=== PATIENT | male | born 1955 | race Caucasian/White ===

== ENCOUNTER 2023-03-08 00:39 | Day surgery (SDC) | payer OTHER, SELFPAY ==
[2023-02-25 10:31] VITALS: BMI 29.9
[2023-03-08 06:57] VITALS: BP 123/71; PULSE 62; RESP 20; TEMP 36.2; O2SAT 100; BMI 30.6
[2023-03-08] MEDS: LACTATED RINGERS 1,000 ML 150 ML IV CONT (07:13)
[2023-03-08 07:17] LABS: Glucose Point of Care 145 mg/dl (65-105)
--- NOTE | 2023-03-08 07:27 | WPDANESEPPF ---
Anes - Initial Pre Proc Eval Procedure: Operation Date: 03/08/23 08:15 Proposed Procedures p Screening Colonoscopy - Josiah Otto MD Date/Time: 03/08/23 07:27 Surgeon: Josiah Otto MD Pre Op Diagnosis: neoplasm screening Patient Data Age: 67 Gender: M Height: 1.8 m Weight: 99.5 kg Last Vital Signs Temp 97.2 F L 03/08/23 06:57 Pulse 62 03/08/23 06:57 Resp 20 03/08/23 06:57 BP 123/71 03/08/23 06:57 Pulse Ox 100 03/08/23 06:57 O2 Del Method Room Air 03/08/23 06:57 Allergies Allergy/AdvReac Type Severity Reaction Status Date / Time No Known Allergies Allergy Unknown Verified 03/08/23 06:56 Home Medications Medication Instructions Recorded Confirmed Type aspirin 81 mg tablet,delayed 81 mg PO DAILY 02/03/20 02/25/23 History release atorvastatin 40 mg tablet 40 mg PO DAILY 02/03/20 02/25/23 History flaxseed oil 1,000 mg capsule 1,000 mg PO DAILY 02/03/20 02/25/23 History ([place]-3 Flaxseed Oil) lisinopril 20 1 tablet PO DAILY 02/03/20 02/25/23 History mg-hydrochlorothiazide 12.5 mg tablet fenofibrate 160 mg tablet 160 mg PO DAILY #90 tabs 02/05/22 02/25/23 Rx multivitamin (One-A-Day Essential 1 tablet PO DAILY 02/09/22 02/25/23 History tablet) empagliflozin 25 mg tablet 25 mg PO QAM #90 tabs 01/08/23 02/25/23 Rx (Jardiance) allopurinol 100 mg tablet 100 mg PO DAILY #90 tabs 01/29/23 02/25/23 Rx amlodipine 5 mg tablet 5 mg PO DAILY 02/25/23 02/25/23 History ezetimibe 10 mg tablet 10 mg PO DAILY 02/25/23 02/25/23 History metformin 500 mg tablet 1,000 mg PO DAILY 02/25/23 02/25/23 History nebivolol 2.5 mg tablet 2.5 mg PO DAILY 02/25/23 02/25/23 History Laboratory Tests 03/08/23 07:11 POC Capillary Glucose 145 mg/dl H mg/dl (65-105) Patient hx anesthesia problems: none Family hx anesthesia problems: none Results Review: All pre-operative results and documents have been reviewed as part of the pre-operative evaluation. [facility] Past Medical History Medical History Bilateral carotid artery disease Coronary artery disease Diabetes type 2, uncontrolled Hyperlipidemia Hypertension Surgical History Surgical History History of open heart surgery Family History Family History Mother , stroke Cerebrovascular accident Hypertension Father No problems noted. Social History Social History Smoking status: Never smoker Alcohol intake: current Alcohol use details: 5 drinks monthly Substance use type: does not use Lack of Transportation: No Lack of Food: Never True Current Housing: I Have Housing Concerned About Future Housing: No Difficulty Paying Gas/Electric Bills: No Difficulty Paying for Meds: No Currently Unemployed: No Education: High School Diploma/GED Difficulty w/ Childcare or Family Care: No Living arrangements: with family Spiritual care concerns: No Anes - Eval Final PreProcedure Day of Procedure 03/08/23 07:27 Patient weight: obese Heart: regular rate and rhythm Lungs: clear to auscultation Airway: Mallampati scale class III Neurological: alert and oriented Last oral intake: >/= 8 hours ASA classification: III Emergent: no Anesthetic plan: proceed Anesthesia type and monitoring: general GIVS and standard monitoring Results Review: All pre-operative results and documents have been reviewed as part of the pre-operative evaluation. Informed Consent: The patient's anesthetic plan and its attendant risks and benefits were discussed with the patient/family/POA. Questions were solicited and answers provided to the satisfaction of the patient/family/POA.
--- NOTE | 2023-03-08 08:10 | PM.HPGS ---
History of Present Illness History of Present Illness Consent: Risks, benefits, and alternatives have been discussed and questions answered. Patient agrees to proceed with procedure. Chief complaint: neoplasm screening Narrative: Jefry Ortiz is a 67 year old male Presents for screening colonoscopy. Patient's current weight appetite and bowel movements are normal. Patient denies abdominal pain. Patient had previous colonoscopy in 2010 that was unremarkable. Review of Systems Review of Systems: Review of systems noncontributory. [facility] Past Medical History Medical History Bilateral carotid artery disease Coronary artery disease Diabetes type 2, uncontrolled Hyperlipidemia Hypertension Surgical History Surgical History History of open heart surgery Family History Family History Mother , stroke Cerebrovascular accident Hypertension Father No problems noted. Social History Social History Smoking status: Never smoker Alcohol intake: current Alcohol use details: 5 drinks monthly Substance use type: does not use Lack of Transportation: No Lack of Food: Never True Current Housing: I Have Housing Concerned About Future Housing: No Difficulty Paying Gas/Electric Bills: No Difficulty Paying for Meds: No Currently Unemployed: No Education: High School Diploma/GED Difficulty w/ Childcare or Family Care: No Living arrangements: with family Spiritual care concerns: No Meds Home Medications and Allergies Home Medications Medication Instructions Recorded Confirmed Type aspirin 81 mg tablet,delayed 81 mg PO DAILY 02/03/20 02/25/23 History release atorvastatin 40 mg tablet 40 mg PO DAILY 02/03/20 02/25/23 History flaxseed oil 1,000 mg capsule 1,000 mg PO DAILY 02/03/20 02/25/23 History ([place]-3 Flaxseed Oil) lisinopril 20 1 tablet PO DAILY 02/03/20 02/25/23 History mg-hydrochlorothiazide 12.5 mg tablet fenofibrate 160 mg tablet 160 mg PO DAILY #90 tabs 02/05/22 02/25/23 Rx multivitamin (One-A-Day Essential 1 tablet PO DAILY 02/09/22 02/25/23 History tablet) empagliflozin 25 mg tablet 25 mg PO QAM #90 tabs 01/08/23 02/25/23 Rx (Jardiance) allopurinol 100 mg tablet 100 mg PO DAILY #90 tabs 01/29/23 02/25/23 Rx amlodipine 5 mg tablet 5 mg PO DAILY 02/25/23 02/25/23 History ezetimibe 10 mg tablet 10 mg PO DAILY 02/25/23 02/25/23 History metformin 500 mg tablet 1,000 mg PO DAILY 02/25/23 02/25/23 History nebivolol 2.5 mg tablet 2.5 mg PO DAILY 02/25/23 02/25/23 History Allergies Allergy/AdvReac Type Severity Reaction Status Date / Time No Known Allergies Allergy Unknown Verified 03/08/23 06:56 Vital Signs Vital Signs - 24 hr 03/08/23 06:57 Temperature 97.2 F L Pulse Rate 62 Respiratory Rate 20 Blood Pressure 123/71 Pulse Oximetry 100 Oxygen Delivery Room Air Exam Narrative: Physical exam reveals patient to be alert. Vital signs stable. HEENT exam is unremarkable. . Lungs are clear to auscultation and percussion. Heart is without murmur or extra sounds. Abdomen bowel sounds present soft nontender with no hepatosplenomegaly. Digital external rectal exam is normal. Assessment and Plan Assessment and plan (1) Screening for colon cancer: Code(s): Z12.11 - Encounter for screening for malignant neoplasm of colon Status: Acute Assessment and Plan: Patient presents today for screening colonoscopy. He appears to be at average risk for colon polyps. Further recommendations may be given after endoscopy.
[2023-03-08] MEDS: SIMETHICONE ORAL SUSPENSION 20 MG/0.3 ML 30 ML BOTTLE 0.6 ML IRRIGATION (08:32)
[2023-03-08 08:42] VITALS: BP 96/44; PULSE 67; RESP 17; O2SAT 98
[2023-03-08 08:52] VITALS: BP 113/61; PULSE 63; RESP 17; O2SAT 95
[2023-03-08 09:02] VITALS: BP 124/66; PULSE 61; RESP 18; O2SAT 99
== END 2023-03-08 09:11 | disposition home or self-care (01) ==
PROVIDERS: PCP Physician Assistant; Visit Provider Internal Medicine Gastroenterology
PROC: 0DJD8ZZ Inspection of Lower Intestinal Tract, Via Natural or Artificial Opening Endoscopic (ICD-10-PCS; CPT 45378; principal; 2023-03-08 08:15)
DX: Z12.11 Encounter for screening for malignant neoplasm of colon (principal); D12.3 Benign neoplasm of transverse colon; K63.5 Polyp of colon; I25.10 Atherosclerotic heart disease of native coronary artery without angina pectoris; I65.23 Occlusion and stenosis of bilateral carotid arteries; I10 Essential (primary) hypertension; E78.5 Hyperlipidemia, unspecified; E11.9 Type 2 diabetes mellitus without complications; Z79.82 Long term (current) use of aspirin; Z79.84 Long term (current) use of oral hypoglycemic drugs; E66.9 Obesity, unspecified; Z68.30 Body mass index [BMI] 30.0-30.9, adult
CPT/HCPCS: 45378; 82948; 88305; J2704; J7120

== ENCOUNTER 2024-02-25 13:56 | Outpatient (CLI) | payer MEDICARE, OTHER, SELFPAY | END 2024-02-25 13:57 | disposition home or self-care (01) | LOC: ANHAUDIO 13:56 | PROVIDERS: Visit Provider Otolaryngology | DX: H90.71 Mixed conductive and sensorineural hearing loss, unilateral, right ear, with unrestricted hearing on the contralateral side (principal); H93.A1 Pulsatile tinnitus, right ear; H69.90 Unspecified Eustachian tube disorder, unspecified ear; H70.11 Chronic mastoiditis, right ear; H90.42 Sensorineural hearing loss, unilateral, left ear, with unrestricted hearing on the contralateral side; H90.11 Conductive hearing loss, unilateral, right ear, with unrestricted hearing on the contralateral side | CPT/HCPCS: 92557; 92567 ==

== ENCOUNTER 2025-03-24 14:30 | Outpatient (RCR) | payer MEDICARE, OTHER, SELFPAY | END 2025-05-24 13:54 | disposition home or self-care (01) | LOC: ANHDMC 14:30 | PROVIDERS: PCP Family Medicine; Visit Provider Family Medicine | DX: E11.65 Type 2 diabetes mellitus with hyperglycemia (principal); I25.10 Atherosclerotic heart disease of native coronary artery without angina pectoris; Z71.3 Dietary counseling and surveillance | CPT/HCPCS: G0108; G0109 ==